=== PATIENT | male | born 1990 | race Two or more races ===

== ENCOUNTER 2016-07-21 04:49 | Emergency (ER) | payer SELFPAY ==
[~2016-07-21] VITALS: Ht 162.6 cm; Wt 69.9 kg
[2016-07-21] MEDS ORDERED: SODIUM CHLORIDE FLUSH 10ML SYR IVF ONE (05:30)
[2016-07-21 06:08] LABS: BLOOD UREA NITROGEN 9 mg/dL (7-18)
[2016-07-21 06:13] LABS: ASPARTATE AMINO TRANSFERASE 24 U/L (15-37)
[2016-07-21] MEDS ORDERED: OMNIPAQUE 350 MG/ML, 100ML BOTTLE ONE (06:31)
[2016-07-21 07:27] VITALS: BP 117/71
== END 2016-07-21 07:58 | disposition home or self-care (01) ==
LOC: ED 07:29
DX: R10.12 Left upper quadrant pain (principal); M79.1 Myalgia; G89.29 Other chronic pain
CPT/HCPCS: 36415; 74177; 80053; 81003; 85025; 99285; Q9967